=== PATIENT | female | born 1945 | race Caucasian/White ===

== ENCOUNTER 2020-08-28 08:21 | Outpatient (CLI) | payer MEDICARE | END 2020-08-28 08:22 | disposition home or self-care (01) | LOC: CSHWCC 08:21 | PROVIDERS: ATTEND Nurse Practitioner Family | DX: S81.801D Unspecified open wound, right lower leg, subsequent encounter (principal); I87.2 Venous insufficiency (chronic) (peripheral); E78.2 Mixed hyperlipidemia; E03.9 Hypothyroidism, unspecified; W01.198D Fall on same level from slipping, tripping and stumbling with subsequent striking against other object, subsequent encounter | CPT/HCPCS: 97139; G0463; 99203 ==